=== PATIENT | male | born 1945 | race Caucasian/White ===

== ENCOUNTER 2021-10-19 12:54 | Emergency (ER) | payer OTHER ==
[~2021-10-19] VITALS: Ht 180.3 cm; Wt 74.4 kg
[2021-10-19 23:46] VITALS: BP 127/84
== END 2021-10-20 00:16 | disposition home or self-care (01) ==
LOC: ER 12:54
DX: S93.402A Sprain of unspecified ligament of left ankle, initial encounter (principal); S40.812A Abrasion of left upper arm, initial encounter; F17.210 Nicotine dependence, cigarettes, uncomplicated; V43.92XA Unspecified car occupant injured in collision with other type car in traffic accident, initial encounter; Y93.89 Activity, other specified; Y92.488 Other paved roadways as the place of occurrence of the external cause; Y99.8 Other external cause status
CPT/HCPCS: 29515; 73030; 73610; 73630; 73700